=== PATIENT | female | born 1950 | race Caucasian/White ===

== ENCOUNTER → 2019-06-23 | Outpatient (CLI) | payer OTHER | END | disposition home or self-care (01) | LOC: TOM 09:17 | DX: K56.600 Partial intestinal obstruction, unspecified as to cause (principal); K56.50 Intestinal adhesions [bands], unspecified as to partial versus complete obstruction; K56.690 Other partial intestinal obstruction; K56.609 Unspecified intestinal obstruction, unspecified as to partial versus complete obstruction ==

== ENCOUNTER 2022-10-27 10:30 | Outpatient (CLI) | payer OTHER | END 2022-10-27 10:32 | disposition home or self-care (01) | LOC: SONOGRAMA 10:30 | PROVIDERS: ATTEND Pathology Anatomic Pathology & Clinical Pathology | DX: D34 Benign neoplasm of thyroid gland (principal); E04.9 Nontoxic goiter, unspecified; E06.0 Acute thyroiditis ==